=== PATIENT | male | born 2000 | race African-American/Black ===

== ENCOUNTER 2024-03-11 20:51 | Emergency (ER) | payer BC ==
[2024-03-11 22:22] LABS: Influenza A by NAA Not Detected (NotDetected); Influenza B by NAA Not Detected (NotDetected); SARS-CoV-2 NAA Rapid Test DETECTED (NotDetected)
== END 2024-03-11 23:04 | disposition home or self-care (01) ==
LOC: CSHERS 20:51
DX: U07.1 COVID-19 (principal)
CPT/HCPCS: 99283